=== PATIENT | female | born 1960 | race African-American/Black ===

== ENCOUNTER 2018-07-15 17:05 | Emergency (ER) | payer MEDICAID ==
[~2018-07-15] VITALS: Ht 160 cm; Wt 84.8 kg
[2018-07-15 17:10] VITALS: BP 190/116
--- NOTE | 2018-07-15 17:17 | NUR ---
PT AMBULATED TO BED 06.
--- NOTE | 2018-07-15 17:17 | NUR ---
BIB SELF. AAO X4 C/O "RACING CHEST" AND DIZZINESS THAT STARTED THIS MORNING. PT STATES MID CHEST PAIN 5/10 INTERMITTENTLY TODAY AM. GENERALIZED BODY ACHE /10. PT STATES DIZZINESS, N/V, VOMIT X 2. FULL CLEAR SPEECH, FACIAL SYMMETRICAL, EQUAL [place] STRENGTH TO UPPER AND LOWER EXTREMITIES, STEADY GAIT. PT STATES SHE IS ANXIOUS. DENIES SOB. PT PLACED ON FULL MORTGAGE LOAN ASSISTANT. HOB UP BED SIDE RAILS UP X1. ON LOW BED POSITION, LOCKED. ER MADE AWARE OF PT STATUS. WILL CONTINUE TO MONITOR.
--- NOTE | 2018-07-15 17:17 | NUR ---
Note undone in EDM - 07/15/18 at 1804 by [facility] BIB SELF. AAO X4 C/O "RACING CHEST" AND DIZZINESS THAT STARTED THIS MORNING. PT STATES MID CHEST PAIN 5/10 INTERMITTENTLY TODAY AM. GENERALIZED BODY ACHE 9/10. PT STATES DIZZINESS, N/V, VOMIT X 2. FULL CLEAR SPEECH, FACIAL SYMMETRICAL, EQUAL [place] STRENGTH TO UPPER AND LOWER EXTREMITIES, STEADY GAIT. PT STATES SHE IS ANXIOUS. DENIES SOB. PT PLACED ON FULL HSE ADVISOR. HOB UP BED SIDE RAILS UP X1. ON LOW BED POSITION, LOCKED. MD SIMON MADE AWARE OF PT STATUS. WILL CONTINUE TO MONITOR.
[2018-07-15] MEDS ORDERED: NACL 0.9% 1,000 ML IV ONE (17:25)
[2018-07-15] MEDS ORDERED: ONDANSETRON 4 MG/2 ML VIAL IVP ONE (17:25)
--- NOTE | 2018-07-15 17:29 | NUR ---
Dr. Perez evaluating patient at bedside.
[2018-07-15] MEDS ORDERED: KETOROLAC 30 MG/ML VIAL IVP ONE (17:40)
[2018-07-15 18:01] LABS: BASOPHILS % (AUTO) 0.4 % (0.0-2.0); EOSINOPHILS # (AUTO) 0.1 K/uL (0-0.4); EOSINOPHILS % (AUTO) 2.1 % (0.0-4.0); HEMATOCRIT 38.5 % (36-48); HEMOGLOBIN 12.8 g/dL (12.0-16.0); LYMPHOCYTES # (AUTO) 2.2 K/uL (2.5-16.5); LYMPHOCYTES % (AUTO) 34.3 % (20.5-51.1); MEAN CORPUSCULAR HEMOGLOBIN 29 pg (27-31); MEAN CORPUSCULAR HGB CONC 33 g/dL (33-37); MEAN CORPUSCULAR VOLUME 85.8 fL (80-94); MONOCYTES # (AUTO) 0.4 K/uL (0.8-1.0); MONOCYTES % (AUTO) 6.9 % (1.7-9.3); NEUTROPHILS # (AUTO) 3.5 K/uL (1.8-7.7); NEUTROPHILS % (AUTO) 56.3 % (42.2-75.2); PLATELET COUNT (AUTO) 280 K/uL (140-450); RED BLOOD CELL COUNT(AUTO) 4.49 MIL/uL (4.20-5.40); WHITE BLOOD COUNT (AUTO) 6.3 K/uL (4.8-10.8)
[2018-07-15 18:12] LABS: ANION GAP 12.6 (8-16); CREATININE 0.8 mg/dL (0.6-1.3); POTASSIUM 3.6 mmol/L (3.5-5.1)
[2018-07-15 18:18] LABS: ALBUMIN 3.7 g/dL (3.4-5.0); TOTAL BILIRUBIN 0.4 mg/dL (0.0-1.0)
[2018-07-15 19:12] VITALS: BP 151/90
--- NOTE | 2018-07-15 19:12 | NUR ---
Patient discharged with v/s stable. Written and verbal after care instructions given and explained. Patient alert, oriented and verbalized understanding of instructions. Ambulatory with steady gait. All questions addressed prior to discharge. ID band removed. Patient advised to follow up with PMD. Rx of Motrin, Xanax given. Patient educated on indication of medication including possible reaction and side effects. Opportunity to ask questions provided and answered.
--- NOTE | 2018-07-18 07:58 | NUR ---
Confirmed with RN that 1000 ml 0.9 NS IV completed at 1900. Late entry
== END 2018-07-15 19:12 | disposition home or self-care (01) ==
LOC: MED 17:05
DX: R07.9 Chest pain, unspecified (principal); R42 Dizziness and giddiness; R11.10 Vomiting, unspecified; I10 Essential (primary) hypertension; J44.9 Chronic obstructive pulmonary disease, unspecified
CPT/HCPCS: 36415; 71045; 80053; 84484; 85025; 93005; 96361; 96374; 96375; 99284; J1885; J2405; J7030; Q0092

== ENCOUNTER 2020-07-07 05:20 | Emergency (ER) | payer OTHER, MEDICAID ==
[~2020-07-07] VITALS: Ht 160 cm; Wt 86.2 kg
[2020-07-07 05:24] VITALS: BP 133/97
--- NOTE | 2020-07-07 05:24 | NUR ---
TO BED AMBULATORY
--- NOTE | 2020-07-07 05:30 | NUR ---
RECEIVED IN BED 12 WITH C/O OS PAIN. PT STATES SHE WOKE UP AND IT FELT LIKE THERE WAS SOMETHING IN THERE, "LIKE A ROCK'
--- NOTE | 2020-07-07 05:32 | NUR ---
Dr. Ash examining patient.
[2020-07-07] MEDS ORDERED: TETRACAINE HCL/PF 0.5% OPTH 4 ML BTL OP ONE (05:35)
[2020-07-07] MEDS ORDERED: TETRACAINE HCL/PF 0.5% OPTH 4 ML BTL ONE (05:36)
[2020-07-07] MEDS ORDERED: FLUORESCEIN OPTH STRIP 1 MG OP ONE (05:40)
[2020-07-07 05:55] VITALS: BP 133/97
--- NOTE | 2020-07-07 05:55 | NUR ---
Patient discharged with v/s stable. Written and verbal after care instructions given and explained. Patient verbalized understanding. Ambulatory with steady gait. All questions addressed prior to discharge. Advised to follow up with PMD.
== END 2020-07-07 05:55 | disposition home or self-care (01) ==
LOC: MED 05:20
DX: H57.12 Ocular pain, left eye (principal); J44.9 Chronic obstructive pulmonary disease, unspecified; I10 Essential (primary) hypertension
CPT/HCPCS: 99283

== ENCOUNTER 2020-08-28 23:20 | Emergency (ER) | payer OTHER, MEDICAID ==
[~2020-08-28] VITALS: Ht 165.1 cm; Wt 84.4 kg
[2020-08-28 23:27] VITALS: BP 112/75
[2020-08-29] MEDS ORDERED: KETOROLAC 30 MG/ML VIAL IM ONE ×2 (01:15→02:20)
[2020-08-29] MEDS ORDERED: IBUP-2218 PO (01:16)
[2020-08-29] MEDS ORDERED: KETOROLAC 30 MG/ML VIAL ONE (01:22)
[2020-08-29 01:30] VITALS: BP 112/75
== END 2020-08-29 01:30 | disposition home or self-care (01) ==
LOC: MED 23:20
DX: M25.562 Pain in left knee (principal); J44.9 Chronic obstructive pulmonary disease, unspecified; E11.9 Type 2 diabetes mellitus without complications; I10 Essential (primary) hypertension; E78.5 Hyperlipidemia, unspecified; Z79.899 Other long term (current) drug therapy
CPT/HCPCS: 73562; 96372; 99283; J1885

== ENCOUNTER 2021-06-20 20:44 | Emergency (ER) | payer OTHER, MEDICAID ==
[~2021-06-20] VITALS: Ht 160 cm; Wt 81.6 kg
[~2021-06-20 20:44] MED LIST: IBUP-2218 PO
[2021-06-20 20:46] VITALS: BP 118/75
--- NOTE | 2021-06-20 20:58 | NUR ---
PT W/C ASSISTED TO BED 12
--- NOTE | 2021-06-20 21:05 | NUR ---
ER MD AT BEDSIDE EXAMINING PT
[2021-06-20] MEDS ORDERED: KETOROLAC 30 MG/ML VIAL IM ONE (21:15)
--- NOTE | 2021-06-20 21:15 | NUR ---
X-Ray at bedside.
--- NOTE | 2021-06-20 21:17 | NUR ---
XRAY AT BEDSIDE
--- NOTE | 2021-06-20 21:30 | NUR ---
ULTRASOUND AT BEDSIDE
--- NOTE | 2021-06-20 21:32 | NUR ---
60 Y/O FEMALE BIBS, C/O RIGHT KNEE PAIN X2 WK. PATIENT PRESENTS TO ED WITH CMS INTACT, NO OBVIOUS TRAUMA OR DEFORMITY. PT STATES SHE HAS HAD THE PAIN FOR THE LAST 2-3 WEEKS BUT THE PAIN HAS BEEN WORSE OVER THE LAST COUPLE DAYS, PT HAS HAD TROUBLE WALKING DUE TO THE PAIN AND MOBILITY IS REDUCED. DENIES N/V/D; SKIN IS PINK/WARM/DRY; AAOX4 WITH EVEN AND STEADY GAIT; LUNGS CLEAR BL; HR EVEN AND REGULAR; PT DENIES ANY FEVER, CP, SOB, OR COUGH AT THIS TIME; PATIENT STATES PAIN OF 10/10 AT THIS TIME; VSS; PATIENT POSITIONED FOR COMFORT; HOB ELEVATED; BEDRAILS UP X2; BED DOWN. ER MD MADE AWARE OF PT STATUS. HX: HTN, DM, COPD NKA MEDS: D3, AMLODIPINE, QUETIAPINE, NIACIN, METFORMIN, CYCLOBENZAPRINE
[2021-06-20] MEDS ORDERED: LID5T TP (22:44)
[2021-06-20] MEDS ORDERED: NAPR-54 PO (22:44)
[2021-06-20 22:58] VITALS: BP 118/75
--- NOTE | 2021-06-20 23:05 | NUR ---
Patient discharged with v/s stable. Written and verbal after care instructions given and explained. Patient alert, oriented and verbalized understanding of instructions. Ambulatory with steady gait. All questions addressed prior to discharge. ID band removed. Patient advised to follow up with PMD. Rx of LIDOCAINE HYD AND NAPROXEN given. Patient educated on indication of medication including possible reaction and side effects. Opportunity to ask questions provided and answered. VSS, A/OX4, AMBULATORY, UNLABORED BREATHING, AND CALM DEMEANOR.
== END 2021-06-20 23:05 | disposition home or self-care (01) ==
LOC: MED 20:44
DX: M17.0 Bilateral primary osteoarthritis of knee (principal); J44.9 Chronic obstructive pulmonary disease, unspecified; E11.9 Type 2 diabetes mellitus without complications; I10 Essential (primary) hypertension; Z79.899 Other long term (current) drug therapy; Z79.1 Long term (current) use of non-steroidal anti-inflammatories (NSAID)
CPT/HCPCS: 73562; 82948; 93971; 96372; 99284; J1885; Q0092

== ENCOUNTER 2021-10-26 14:38 | Emergency (ER) | payer OTHER, MEDICAID ==
[~2021-10-26] VITALS: Ht 157.5 cm; Wt 83.9 kg
[~2021-10-26 14:38] MED LIST changes: +LID5T TP; +NAPR-54 PO
[2021-10-26 15:21] VITALS: BP 143/96
--- NOTE | 2021-10-26 15:48 | NUR ---
PT STATES THAT SHE'S "GONNA GO AND EAT"
--- NOTE | 2021-10-26 16:00 | NUR ---
PATIENT LEFT WITHOUT BEING SEEN BY DR. EATON. NO FURTHER CARE PROVIDED FOR PATIENT.
[2021-10-28] MEDS ORDERED: ACETAMINOPHEN EXTRA STRENGTH 500 MG TAB PO ONE (02:30)
== END 2021-10-26 16:00 | disposition left against medical advice (07) ==
LOC: MED 14:38
DX: R10.13 Epigastric pain (principal); Z53.21 Procedure and treatment not carried out due to patient leaving prior to being seen by health care provider